=== PATIENT | female | born 1950 | race Caucasian/White ===

== ENCOUNTER 2024-09-18 07:57 | Emergency (ER) | payer BC ==
[~2024-09-18] VITALS: Ht 149.9 cm; Wt 59.0 kg
[2024-09-18 08:18] VITALS: TEMP 36.7; O2SAT 98
[2024-09-18] MEDS: BACITRACIN ZINC OINT UDPKT TOP ONE (08:47)
[2024-09-18] MEDS: TETANUS, DIPHTHERIA, PERTUSSIS VAC/PF 0.5ML (>10YR OLD) IM ONE (08:48)
[2024-09-18 09:03] VITALS: BP 165/48; PULSE 66; RESP 18; O2SAT 99
== END 2024-09-18 09:06 | disposition home or self-care (01) ==
LOC: ER 07:57
DX: T24.211A Burn of second degree of right thigh, initial encounter (principal); T31.0 Burns involving less than 10% of body surface; E11.9 Type 2 diabetes mellitus without complications; I10 Essential (primary) hypertension; Z23 Encounter for immunization; X08.8XXA Exposure to other specified smoke, fire and flames, initial encounter; Y93.89 Activity, other specified; Y92.89 Other specified places as the place of occurrence of the external cause; Y99.8 Other external cause status
CPT/HCPCS: 16020; 90471; 90715; 99283